=== PATIENT | female | born 1965 | race African-American/Black ===

== ENCOUNTER 2019-05-02 09:46 | Inpatient (IN) | payer MEDICAID ==
[~2019-05-02] VITALS: Ht 157.5 cm; Wt 107.5 kg
[2019-05-02] MEDS ORDERED: FAMOTIDINE 20MG/2ML VIAL IV STA (11:06)
[2019-05-02] MEDS ORDERED: SODIUM CHLORIDE 0.9% 1,000 ML IV ONE (11:06)
[2019-05-02] MEDS ORDERED: ONDANSETRON HCL 4MG/2ML INJ IV STA (11:06)
[2019-05-02] MEDS ORDERED: ENALAPRIL 2.5MG/2ML VIAL 2ML IV ONE ×2 (11:45→13:00)
[2019-05-02 12:00] LABS: HEMATOCRIT. 39.2 % (36.0-48.0); HEMOGLOBIN. 12.7 g/dL (12.0-16.0); MEAN CORPUSCULAR HEMOGLOBIN 26.2 pg (28.0-32.0); MEAN CORPUSCULAR VOLUME 81.1 fL (81.0-99.0); MEAN PLATELET VOLUME 8.8 fl (7.4-10.4); PLATELET 296 x1000/uL (130-400); RED BLOOD CELL COUNT 4.84 mill/uL (4.2-5.4); RED CELL DISTRIBUTION WIDTH 15.8 % (11.6-14.6)
[2019-05-02 12:02] LABS: CLARITY URINE CLEAR (CLEAR); COLOR URINE YELLOW (YELLOW); KETONES URINE NEGATIVE (NEGATIVE); LEUKOCYTE ESTERASE URINE NEGATIVE (NEGATIVE); NITRITE URINE NEGATIVE (NEGATIVE); OCCULT BLOOD URINE NEGATIVE (NEGATIVE); PH URINE 7.5 (4.5-8.0); PROTEIN URINE TRACE (NEGATIVE); SPECIFIC GRAVITY URINE 1.007 (1.005-1.030); UROBILINOGEN URINE 0.2 E.U./dL (0.2-1.0)
[2019-05-02 12:03] LABS: CHLORIDE 106 mEq/L (98-107); INR 1.1; PROTHROMBIN TIME 10.8 sec (9.6-11.0)
[2019-05-02 12:07] LABS: ETHANOL BLOOD < 10 mg/dL
[2019-05-02 12:25] LABS: *BARBITURATES SCREEN URINE NEGATIVE (NEGATIVE); *BENZODIAZEPINES SCREEN URINE NEGATIVE (NEGATIVE)
[2019-05-02 12:26] LABS: *AMPHETAMINES SCREEN URINE NEGATIVE (NEGATIVE); *COCAINE SCREEN URINE NEGATIVE (NEGATIVE); CANNABINOID URINE SCREEN NEGATIVE (NEGATIVE); METHADONE URINE SCREEN NEGATIVE (NEGATIVE); OPIATES URINE SCREEN NEGATIVE (NEGATIVE); PHENCYCLIDINE URINE SCREEN NEGATIVE (NEGATIVE)
[2019-05-02 12:36] LABS: PLATELET ESTIMATE NORMAL
[2019-05-02] MEDS ORDERED: CLINDAMYCIN 600 MG in DEXTROSE 5% WATER 50 ML IV ONE (12:45)
[2019-05-02] MEDS ORDERED: CLINDAMYCIN 600MG PREMIX 50 ML IV ONE (13:00)
[2019-05-02] MEDS ORDERED: ACETAMINOPHEN 325MG TABLET ONE (14:20)
[2019-05-02 21:30] VITALS: BP 173/68
[2019-05-02] MEDS ORDERED: ONDANSETRON HCL 4MG/2ML INJ IV PRN (22:15)
[2019-05-02] MEDS ORDERED: DEXTROSE 50% WATER 50ML SYRINGE IV PRN ×2 (22:15)
[2019-05-02] MEDS: HYDROCODONE/ACETAMINOPHEN 5/325MG TABLET PO PRN (23:06)
[2019-05-02] MEDS: METHYLPREDNISOLONE SOD SUCC 40 MG/ML VIAL IV SCH (23:15)
[2019-05-03] MEDS ORDERED: LISI40TA4 PO (02:15)
[2019-05-03] MEDS ORDERED: AMLO10TA80 PO (02:15)
[2019-05-03] MEDS ORDERED: ATEN-42 PO (02:15)
[2019-05-03 04:00] VITALS: BP 168/83
[2019-05-03] MEDS: BLOOD SUGAR DIAGNOSTIC STRIP TEST SCH ×4 (06:28→20:41)
[2019-05-03] MEDS: CLONIDINE 0.1MG TABLET PO PRN ×2 (06:45→17:31)
[2019-05-03] MEDS: METHYLPREDNISOLONE SOD SUCC 40 MG/ML VIAL IV SCH ×3 (06:45→20:51)
[2019-05-03] MEDS: INSULIN LISPRO 100 UNITS/ML SUBCUT SCH ×4 (06:46→20:51)
[2019-05-03 07:47] LABS: HEMATOCRIT 40.3 % (36.0-48.0); HEMOGLOBIN 13.1 g/dL (12.0-16.0); MEAN CORPUSCULAR HEMOGLOBIN 26.7 pg (28.0-32.0); PLATELET 329 x1000/uL (130-400); RED BLOOD CELL COUNT 4.91 mill/uL (4.2-5.4); RED CELL DISTRIBUTION WIDTH 15.4 % (11.6-14.6)
[2019-05-03 07:53] LABS: CHLORIDE 103 mEq/L (98-107)
[2019-05-03 08:00] VITALS: BP 172/94
[2019-05-03] MEDS: IPRATROPIUM/ALBUTEROL 0.5-3(2.5)MG/3ML NEB HHN SCH ×4 (08:55→20:05)
[2019-05-03] MEDS: LISINOPRIL 40MG TABLET PO SCH (09:00)
[2019-05-03] MEDS ORDERED: LISINOPRIL 40MG TABLET PO SCH (09:00)
[2019-05-03] MEDS ORDERED: AMLODIPINE 10MG TABLET PO SCH (09:00)
[2019-05-03] MEDS ORDERED: ATENOLOL 25MG TABLET PO SCH (09:00)
[2019-05-03] MEDS ORDERED: ENOXAPARIN 40MG/0.4ML SYR SUBCUT SCH (09:00)
[2019-05-03] MEDS: ATENOLOL 25MG TABLET PO SCH (09:01)
[2019-05-03] MEDS: AMLODIPINE 10MG TABLET PO SCH (09:01)
[2019-05-03] MEDS: ENOXAPARIN 30MG/0.3ML SYR SUBCUT SCH ×2 (09:02→20:36)
[2019-05-03 10:42] VITALS: BP 160/90
[2019-05-03 13:00] VITALS: BP 161/89
[2019-05-03 16:00] VITALS: BP 175/89
[2019-05-03 20:00] VITALS: BP 150/74
[2019-05-04] VITALS: BP 165/96
[2019-05-04] MEDS: IPRATROPIUM/ALBUTEROL 0.5-3(2.5)MG/3ML NEB HHN SCH ×5 (00:15→15:36)
[2019-05-04 04:00] VITALS: BP 176/89
[2019-05-04] MEDS: HYDROCODONE/ACETAMINOPHEN 5/325MG TABLET PO PRN (05:30)
[2019-05-04] MEDS: METHYLPREDNISOLONE SOD SUCC 40 MG/ML VIAL IV SCH ×2 (05:30→15:16)
[2019-05-04] MEDS: BLOOD SUGAR DIAGNOSTIC STRIP TEST SCH ×3 (06:45→17:44)
[2019-05-04] MEDS: INSULIN LISPRO 100 UNITS/ML SUBCUT SCH ×3 (06:52→17:15)
[2019-05-04 07:14] LABS: HEMATOCRIT. 40.6 % (36.0-48.0); HEMOGLOBIN. 13.1 g/dL (12.0-16.0); MEAN CORPUSCULAR HEMOGLOBIN 26.1 pg (28.0-32.0); MEAN CORPUSCULAR VOLUME 81.1 fL (81.0-99.0); MEAN PLATELET VOLUME 8.9 fl (7.4-10.4); PLATELET 346 x1000/uL (130-400); RED BLOOD CELL COUNT 5.01 mill/uL (4.2-5.4); RED CELL DISTRIBUTION WIDTH 15.9 % (11.6-14.6)
[2019-05-04 08:06] LABS: CHLORIDE 101 mEq/L (98-107)
[2019-05-04] MEDS: ATENOLOL 25MG TABLET PO SCH (08:59)
[2019-05-04] MEDS: LISINOPRIL 40MG TABLET PO SCH (08:59)
[2019-05-04] MEDS: ENOXAPARIN 30MG/0.3ML SYR SUBCUT SCH (09:00)
[2019-05-04] MEDS: AMLODIPINE 10MG TABLET PO SCH (09:00)
[2019-05-04 12:00] VITALS: BP 174/91
[2019-05-04] MEDS ORDERED: LEVOFLOXACIN 750MG PREMIX 150 ML IV SCH (15:00)
[2019-05-04 16:00] VITALS: BP 162/81
[2019-05-04 18:47] VITALS: BP 145/69
[2019-05-05 09:52] LABS: PLATELET ESTIMATE NORMAL
== END 2019-05-04 19:45 | disposition home or self-care (01) | DRG 145 ==
LOC: ER 09:46 → 5WST 12:58 → EDBEDREQ 13:02 → ENRESERV 19:47
PROVIDERS: ADMIT Internal Medicine; ATTEND Internal Medicine
DX: J20.9 Acute bronchitis, unspecified (principal); E11.319 Type 2 diabetes mellitus with unspecified diabetic retinopathy without macular edema; J01.90 Acute sinusitis, unspecified; I16.0 Hypertensive urgency; Z88.0 Allergy status to penicillin
CPT/HCPCS: 36415; 71045; 80048; 80053; 80305; 80320; 81003; 82962; 83036; 85025; 85027; 94640; 99291; J1650; J1815; J1956; J2405; J2920; J3490; J7030; J7060; J7620; A4315; G0480

== ENCOUNTER 2019-06-15 15:37 | Emergency (ER) | payer MEDICAID ==
[~2019-06-15] VITALS: Ht 165.1 cm; Wt 120.0 kg
[~2019-06-15 15:37] MED LIST: AMLO10TA80 PO; ATEN-42 PO; LISI40TA4 PO
[2019-06-15 16:03] VITALS: BP 184/109
[2019-06-15] MEDS ORDERED: ALBUTEROL (0.083%) 2.5MG/3ML NEB HHN STA (16:45)
[2019-06-15] MEDS ORDERED: IPRATROPIUM BROMIDE (0.02%) 0.5MG/2.5ML NEB HHN STA (16:45)
== END 2019-06-15 17:59 | disposition home or self-care (01) ==
LOC: ER 15:37
DX: J45.901 Unspecified asthma with (acute) exacerbation (principal); I10 Essential (primary) hypertension; E78.00 Pure hypercholesterolemia, unspecified; J45.909 Unspecified asthma, uncomplicated; Z88.0 Allergy status to penicillin
CPT/HCPCS: 71045; 94640; 99283; J7610; Z7610